=== PATIENT | male | born 1965 | race Caucasian/White ===

== ENCOUNTER 2023-07-18 00:21 | Emergency (ER) | payer OTHER, SELFPAY ==
[2023-07-18] VITALS (17 sets, daily range): BP systolic 109–157; BP diastolic 70–93; BMI 27.6
--- NOTE | 2023-07-18 00:43 | ED.GENMED ---
History of Present Illness
General
Chief Complaint: Alcohol Problem
Source: patient
Exam Limitations: none
Time Seen by Provider: 07/18/23 00:33
Travel History
Have you had any contact with someone who has COVID-19?: No
Do you have any symptoms of coronavirus? Fever > 100 degrees, chills, cough, shortness of breath, sore throat, loss of taste or smell, muscle aches, or headache?: No
History of Present Illness
History of Present Illness:
This is a 57 year old male that comes in with c/o alcohol abuse and suicidal thoughts. States that he just doesn't want to live any more. States that he has lost his . States that he has been feeling this way for the past 2 days. States that he
planned to walk in front of a train. States that he has been drinking daily. States that he also takes Dilaudid due to the pancreatic stent. States that he had some chest pain, SOB and a cough for the past 3 days. States that he also felt like he
had a fever as he was hot but didn't check his temp. States that he also was dizzy. Denies any chills, abd pain, nausea, vomiting, diarrhea, headache, urinary burning.
Past History
Past History
ED Past Medical History: COPD, IDDM and Other (Pancreatitis, )
ED Past Surgical History: Orthopedic (Bilateral shoulder surgery, Bilateral knee replacement) and Other (Pancreatic stent)
Social History
Tobacco: Former smoker
Alcohol: Daily (B&B sips all day)
Personal: Other ()
Living: alone
Review of Systems
Review of Systems
All Other Systems: ROS reviewed and negative except as documented in HPI and ROS
Constitutional: Reports other ([place] hot); Denies chills
EENT: Reports no symptoms
Respiratory: Reports cough and trouble breathing
Cardiac: Reports chest pain
ABD/GI: Reports no symptoms; Denies abdominal pain, nausea, vomiting or diarrhea
: Reports no symptoms; Denies dysuria, frequency or urgency
Musculoskeletal: Reports no symptoms
Skin: Reports no symptoms
Neurological: Reports dizzy; Denies headache
Psychiatric: Reports depression and suicidal
Phy Exam
General Physical Exam
General Presentation: no apparent distress
General age: appears stated age
General Skin: warm and dry
General Habitus: normal
General Mental: alert
General Hydration: appears well hydrated
ENT Exam
ENT Exam: TM's normal, pharynx normal and neck supple
Eye Exam
Eye Exam: EOMI
Cardiovascular Exam
Cardiovascular Exam: regular rate/rhythm, no edema, no murmur and normal peripheral pulses
Pulmonary Exam
Pulmonary Exam: lungs clear (after cough), no respiratory distress, no rales, chest non tender, no crackles, no rhonchi, no wheezing and other (Dry cough noted)
Gastrointestinal Exam
Gastrointestinal Exam: normal bowel sounds, non tender, soft, no organomegaly, no pulsatile mass and non distended
Musculoskeletal Exam
Musculoskeletal Exam: full ROM and no edema
Skin Exam
Skin Exam: normal color, warm/dry, no petechia and other (Rash noted over face, Scratch cortés noted on the hand and lower legs)
Psychiatric Exam
Psychiatric Exam: depressed and suicidal
Scores
Withdrawal Assessment of Alcohol
Withdrawal Assessment Completed?: No
Course
Orders/Labs/Results
Orders:
Orders
07/18/23 00:42
Crisis Consult Urgent
Reason for Consult: Suicidal with a plan
CR Chest - 2 Views Urgent
Comment:
Reason For Exam: Cough, SOB
07/18/23 00:45
Electrocardiogram (*1) Urgent
Reason for Study: Chest Pain
EKG- Treatment ONCE
Pantoprazole [Protonix IV] 40 mg IV NOW STA
07/18/23 01:10
Alcohol Urgent
COVID-19 Antigen Urgent
Source: Nasal Swab
Complete Blood Count/With Diff Urgent
Comprehensive Metabolic Panel Urgent
Lipase Urgent
Troponin I Urgent
07/18/23 06:32
Alcohol Urgent
07/18/23 06:46
Fentanyl, Urine Urgent
Urine Drug Abuse Screen Urgent
Date Specimen was Collected: 07/18/23
Time Specimen was Collected: 01:06
07/18/23 07:22
1:1 Observation - Suicide/ Violent Behavior As Directed
07/18/23 09:44
0.9% Sodium Chloride 1000 ml [Nss] 1,000 ml IV BOLUS
Lorazepam [Ativan] 2 mg IV NOW STA
Ondansetron Injectable [Zofran] 4 mg IV NOW STA
07/18/23 14:29
Lorazepam [Ativan] 2 mg IV NOW STA
07/18/23 16:30
Insulin Aspart Corrective Mod [Novolog Flexpen-Moderate Resistance] See Protocol SC AC
07/18/23 22:00
Insulin Glargine Lantus [Lantus] 100 units Subcutaneous Insulin Syringe [Syringe-Insulin] 0 unit SC HS
Abnormal Lab Results
07/18/23 07/18/23 07/18/23
01:10 01:12 06:46
WBC 11.7 H 10^3/uL
(4.8-10.8)
Plt Count 416 H 10^3/uL
(130-400)
Abs Immat Gran (auto) 0.1 H 10^3/uL
(0-0.05)
Absolute Neuts (auto) 6.6 H 10^3/uL
(1.4-6.5)
Absolute Lymphs (auto) 4.1 H 10^3/uL
(1.2-3.4)
BUN 8 L mg/dl
(9-20)
Glucose 245 H mg/dl
(70-99)
Alkaline Phosphatase 168 H U/L
(38-126)
Urine Opiates Screen Positive H
(Negative)
Ur Tricyclics Screen Positive H
(Negative)
POC Glucose 240 H mg/dl
(70-99)
24 07/18/23
14:04 17:53
WBC
Plt Count
Abs Immat Gran (auto)
Absolute Neuts (auto)
Absolute Lymphs (auto)
BUN
Glucose
Alkaline Phosphatase
Urine Opiates Screen
Ur Tricyclics Screen
POC Glucose 239 H mg/dl 252 H mg/dl
(70-99) (70-99)
07/18/23 01:10
07/18/23 01:10
WBC slightly elevated. Plt slightly elevated. Glucose nonfasting (patient is diabetic) Alk phos elevation. Troponin <0.012, COVID negative. Alcohol 216, Lipase normal at 43
Vital Signs
Initial and Last Documented VS:
Initial Vital Signs
Temp Pulse Resp BP Pulse Ox
98.7 F 102 22 134/92 96
07/18/23 00:27 07/18/23 00:27 07/18/23 00:27 07/18/23 00:27 07/18/23 00:27
Last Documented Vital Signs
Temp Pulse Resp BP Pulse Ox
98.2 F 94 20 145/84 92
07/18/23 15:56 07/18/23 15:56 07/18/23 15:56 07/18/23 15:56 07/18/23 15:56
MDM/Problems Addressed
Differential Diagnosis Includes:
Alcohol abuse, Suicidal, Depression
MDM/Problems Addressed:
This is a 57 year old male that comes in with c/o not wanting to live anymore. States that he had a plan to walk in front of a train. States that he has been drinking alcohol daily. States that he has never felt like this before and he doesn't know
what else to say. Patient is tearful.
Will check labs, Crisis evaluation.
Spoke with Crisis and they are working on a bed search for patient.
Chronic conditions affecting care: DM
Acute Exacerbation and/or Progression of Chronic Illness:
NA
*Radiology
Radiology exam reviewed: preliminary read by ED provider (Chest- Negative for active disease)
*Pulse Oximetry
Patient hypoxic: no
*EKG
Interpreted by ED Provider?: Yes
Heart Rate: 93
Rate: normal
Rhythm: sinus
[place]: normal axis
Interval: normal interval
QRS Pattern: normal QRS
Ischemia: no ischemia (Checked by Dr. Funk)
*Business Systems Administrator Interpretation
Rate: Business Systems Administrator- N/A
*Critical Care Note
Total Time (30-74mins, 75-104mins- exclusive of procedures): Not Applicable
ED Attending Note
-
Portions of this chart may have been created with voice recognition software.� Occasional wrong word or��sound alike� substitutions may have occurred due to the inherent limitations of voice recognition software.
Discharge Plan
Departure
Patient Disposition: Psych Facility
Date of Disposition: 07/18/23
Time of Disposition: 02:42
Patient with high blood pressure during this ER visit?: Yes
Condition: Good
Covid-19: Negative COVID-19
Discharge Problem:
Suicidal thoughts, Depression, Alcohol abuse
Instructions: Depression, Adult (DC), Alcohol Use Disorder (DC), Suicide Prevention, BLOOD PRESSURE
Prescriptions:
No Action
trazodone 50 mg Tablet
100 mg PO HS
omeprazole 40 mg Capsule,Delayed Release(Dr/Ec)
40 mg PO DAILY
propranolol [Inderal] 10 mg Tablet
10 mg PO BID
folic acid 1 mg Tablet
1 mg PO DAILY
allopurinol 300 mg Tablet
300 mg PO DAILY
insulin lispro 100 unit/mL Insulin Pen
14 - 20 sliding scale dose SC AC
Rx Instructions:
takes 14-20 units pre meal
escitalopram oxalate [Lexapro] 20 mg Tablet
20 mg PO DAILY
insulin glargine [Lantus Solostar U-100 Insulin] 100 unit/mL (3 mL) Insulin Pen
20 unit SC HS
Creon 24,000-76,000 -120,000 unit Capsule,Delayed Release(Dr/Ec)
1 cap PO AC
hydromorphone 4 mg Tablet
4 mg PO TIDPRN PRN (Reason: severe pain)
clonazepam 0.5 mg Tablet
0.5 mg PO TIDPRN PRN (Reason: anxiety)
Referrals:
PRIVATE,PHYSICIAN [Family Provider] -
Activity Restrictions/Additional Instructions:
Please follow up as directed by Crisis.
Interventions
Interventions:
*Risk Screen - Suicide Last Done: 07/18/23 07:18
*General Assessment Last Done: 07/18/23 01:11
*Neglect/Abuse Screening Last Done: 07/18/23 07:18
ED- Fall Risk Assessment Last Done: 07/18/23 01:55
*ED COVID-19 Vaccine History Last Done: 07/18/23 01:11
ED- Neurological Assessment Last Done: 07/18/23 07:18
ED-Psychological Assessment Last Done: 07/18/23 07:18
Discharge Date and Time
Print Language: FAROESE
[2023-07-18] MEDS: PROTONIX IV 40 MG IV (01:10)
[2023-07-18 01:14] LABS: Glucose - Point of Care 240 mg/dl (70-99)
[2023-07-18 01:30] LABS: % Basophils 1.5 % (0-2); % Eosinophils 1.5 % (0-6); % Immature Granulocytes 0.5 % (0-0.5); % Lymphocytes 35.1 % (20.5-51.1); % Monocytes 4.9 % (1.7-9.3); % Neutrophils 56.5 % (42.2-75.2); Absolute Basophils 0.2 10^3/uL (0-0.2); Absolute Eosinophils 0.2 10^3/uL (0-0.7); Absolute Immature Granulocytes 0.1 10^3/uL (0-0.05); Absolute Lymphocytes 4.1 10^3/uL (1.2-3.4); Absolute Monocytes 0.6 10^3/uL (0.1-0.6); Absolute Neutrophils 6.6 10^3/uL (1.4-6.5); Hematocrit 43.7 % (39.0-52.0); Hemoglobin 15.5 g/dL (13.0-18.0); Mean Corp Hgb Conc. 35.5 g/dL (33.0-37.0); Mean Corpuscular Hgb 30.2 pg (27.0-31.0); Mean Corpuscular Volume 85.2 fL (80.0-94.0); Nucleated Red Blood Cells % 0 % (-); Platelet Count 416 10^3/uL (130-400); Red Blood Cell Count 5.13 10^6/uL (4.70-6.10); Red Cell Dist. Width 12.6 % (11.5-14.5); White Blood Cell Count 11.7 10^3/uL (4.8-10.8)
[2023-07-18 01:39] LABS: COVID-19 Antigen Negative (Negative)
[2023-07-18 01:47] LABS: ALT (SGPT) 16 U/L (0-50); AST (SGOT) 21 U/L (17-59); Albumin 4.1 g/dl (3.5-5.0); Alcohol 216 mg/dl; Alkaline Phosphatase 168 U/L (38-126); Blood Urea Nitrogen 8 mg/dl (9-20); Calcium 9.1 mg/dl (8.4-10.2); Carbon Dioxide 25 mmol/L (22-30); Chloride 98 mmol/L (98-107); Estimated Creatinine Clearance 111 ml/min; Glucose 245 mg/dl (70-99); Lipase 43 U/L (23-300); Potassium 4.4 mmol/L (3.5-5.1); Sodium 136 mmol/L (135-145); Total Bilirubin 0.3 mg/dl (0.2-1.3); Total Protein 7.9 g/dl (6.3-8.2); eGFR > 60.00
[2023-07-18 01:51] LABS: Troponin I < 0.012 ng/ml
--- NOTE | 2023-07-18 03:06 | EDRN ---
Patient resting comfortably, patient aware that we will be repeating blood alcohol around 0630 and then he can be cleared to go over to crisis, however crisis is working on placement.
--- NOTE | 2023-07-18 05:08 | EDRN ---
Patient resting comfortably with call hobbs in reach
--- NOTE | 2023-07-18 06:48 | EDRN ---
Patient ambulated to the restroom and back in bed and provided with more water.
[2023-07-18 07:00] LABS: Alcohol 87 mg/dl
[2023-07-18 07:15] LABS: Amphetamines Negative (Negative); Barbiturates Negative (Negative); Benzodiazepines Negative (Negative); Buprenorphine Negative (Negative); Cocaine Negative (Negative); Marijuana Negative (Negative); Methadone Negative (Negative); Methamphetamines Negative (Negative); Opiates Positive (Negative); Phencyclidine Negative (Negative); Tricyclic Antidepressants Positive (Negative)
--- NOTE | 2023-07-18 07:25 | EDRN ---
Received patient on stretcher sleeping. Patient easily aroused to sound. Patient stated that he has thoughts and a plan on how he would kill himself that 'comes and goes.' Patient stated 'train' when asked what his plan is. Patient is calm and
cooperative. 1 to 1 by clinical dietetic technician.
[2023-07-18 07:34] LABS: Fentanyl, Urine Negative (Negative)
[2023-07-18] MEDS: NSS 1000 IV (09:49)
[2023-07-18] MEDS: ZOFRAN 4 MG IV (09:50)
[2023-07-18] MEDS: ATIVAN 2 MG IV ×2 (09:50→14:35)
--- NOTE | 2023-07-18 10:02 | EDRN ---
POX a steady 85% post ativan so pt placed on oxygen at 3lpm via NC at this time.
--- NOTE | 2023-07-18 11:45 | EDRN ---
Oxygen off at this time.
--- NOTE | 2023-07-18 12:47 | EDRN ---
Pt placed on oxygen at 2lpm via NC as POX keeps decreasing to 87-88% on RA below 90%.
[2023-07-18 14:06] LABS: Glucose - Point of Care 239 mg/dl (70-99)
--- NOTE | 2023-07-18 14:15 | EDRN ---
Pt has been getting medication for alcohol withdrawal as has had DTs in the past. Pt is presently having increased agitation, sl sweating and nausea, and feeling SOB sl. Charge nurse wishes pt to move to crisis area at front of ED. Pt is also on
insulin. Glucose now is 239. This RN just did med rec w/ help of rachel Vera in [place]. This RN requested insulin orders for pt while here. Dr. Hernandez was informed of all this at this time.
--- NOTE | 2023-07-18 14:23 | PHANOTE ---
med rec note- patient stated he does not take the symbiort inhaler and has filled gabapentin but was told he cant use it for some reason.
--- NOTE | 2023-07-18 14:33 | ED.CRISIS ---
ED Crisis Note
ED Crisis Note
Subjective:
Tremulousness. 57-year-old alcoholic who reports to be suicidal
Objective:
Awake and alert, minimally tachycardic at 100. Not tachypneic. Pulse ox 93 to 94% on room air and stable
Assessment/Plan:
Called by nurse to evaluate patient. Continue Ativan. Awaits placement. Is not concernedly hypoxic. Meds ordered.
--- NOTE | 2023-07-18 14:45 | EDRN ---
Pt told this RN after eating his entire lunch, Where's my insulin?. This RN looked up medications and none in the chart. Med rec was done / [facility] in [place] whom pt called then Martita was contacted to check the med rec. Insulin
will be held until tonight as pt had already eaten his lunch when glucose was checked.
--- NOTE | 2023-07-18 15:00 | EDRN ---
Report was given to Mirella Durand RN at this time as pt was moved into Crisis room #2 from room #32. Dr. Hernandez was down to see pt and said pt is okay to move off of cardiac monitoring into the crisis room.
[2023-07-18 17:56] LABS: Glucose - Point of Care 252 mg/dl (70-99)
[2023-07-18] MEDS: NOVOLOG vial 5 UNITS SC (19:00)
[2023-07-18 20:57] LABS: Glucose - Point of Care 176 mg/dl (70-99)
[2023-07-18] MEDS: ATIVAN 1 MG PO (21:16)
[2023-07-18] MEDS: ZOFRAN ODT (ORALLY DISINTEGRATING) 4 MG PO (21:16)
== END 2023-07-18 21:25 ==
LOC: EMR 00:21
PROVIDERS: Clinical Nurse Specialist Family Health; EMERGENCY PHYSICIAN Emergency Medicine
DX: R45.851 Suicidal ideations (principal); F32.A Depression, unspecified; F10.10 Alcohol abuse, uncomplicated; J44.9 Chronic obstructive pulmonary disease, unspecified; E11.9 Type 2 diabetes mellitus without complications; Z87.891 Personal history of nicotine dependence
CPT/HCPCS: 99283; 96374; 96375; 96376; 96361; 71046; 80053; 80306; 80307; 82077; 82962; 83690; 84484; 85025; 87811; 93005